=== PATIENT | female | born 1985 | race Caucasian/White ===

== ENCOUNTER 2020-02-12 17:43 | Inpatient (IN) | payer SELFPAY ==
[~2020-02-12] VITALS: Ht 170.2 cm; Wt 87.6 kg
[~2020-02-12 17:43] MED LIST: IBUP100T4
[2020-02-12] MEDS ORDERED: SODIUM CHLORIDE 0.9% 1,000 ML IV ONE ×2 (18:03→20:00)
[2020-02-12] MEDS ORDERED: ALBUTEROL SULF 2.5 MG/0.5ML(0.5%) NEB SOLN NEB ONE (18:15)
[2020-02-12] MEDS ORDERED: IPRATROPIUM BROM 0.5 MG/2.5ML INH SOL NEB ONE (18:15)
[2020-02-12 18:27] LABS: Basophils # (auto) 0.1 10 ^3/uL (0-0.2); Basophils % (auto) 1.2 % (0.0-2.0); Eosinophils # (auto) 0.5 10 ^3/uL (0-0.8); Eosinophils % (auto) 7.2 % (0.0-7.0); Hematocrit 44.1 % (36.0-46.0); Hemoglobin 14.8 g/dL (12.2-16.2); Lymphocytes % (auto) 26.8 % (10.0-50.0); Mean Corpuscular Hemoglobin 29.8 pg (28.0-32.0); Mean Corpuscular Hgb Conc. 33.5 g/dL (32.0-36.0); Monocytes # (auto) 0.5 10 ^3/uL (0-1.3); Monocytes % (auto) 6.6 % (0.0-12.0); Neutrophils # (auto) 4.4 10 ^3/uL (1.6-8.6); Neutrophils % (auto) 58.2 % (37.0-80.0); Nucleated Red Blood Cells % 0.2 %; Platelet Count (auto) 179 10^3/uL (140-450); Red Blood Cells 4.95 10^6/uL (4.0-5.20); Red Cell Distribution Width 13.7 % (11.8-14.3); White Blood Cell 7.5 10^3/uL (4.4-10.8)
[2020-02-12 18:41] LABS: Albumin 3.9 g/dL (3.4-5.0); Anion Gap 7 (5-15); Blood Urea Nitrogen 9 mg/dL (7-18); Calcium 8.5 mg/dL (8.5-10.1); Carbon Dioxide 23 mmol/L (21-32); Chloride 109 mmol/L (98-107); Glucose 90 mg/dL (74-106); Magnesium 2.6 mg/dL (1.6-2.6); Potassium 3.8 mmol/L (3.5-5.1); Sodium 139 mmol/L (136-145)
[2020-02-12 18:46] LABS: Alanine Aminotransferase 41 U/L (13-56); Alkaline Phosphatase 61 U/L (45-117); Aspartate Aminotransferase 26 U/L (15-37); BUN/Creatinine Ratio 8.7; Bilirubin, Total 0.4 mg/dL (0.2-1.0); GFR African American 78 mL/min; GFR Non-African American 64 mL/min; Total Protein 7.6 g/dL (6.4-8.2)
[2020-02-12] MEDS ORDERED: methylPREDNISolone SOD SUCC 125 MG/2 ML VL IV ONE ×2 (19:00→20:00)
[2020-02-12] MEDS ORDERED: levoFLOXacin 750MG 150 ML IV ONE (20:00)
[2020-02-12 20:33] LABS: Urine Bacteria MANY /hpf (None Seen); Urine Blood Negative /uL (Negative); Urine Budding Yeast FEW /hpf (None Seen); Urine Specific Gravity 1.005 (1.001-1.035); Urine WBC 5 /hpf (0 - 5)
[2020-02-12] MEDS ORDERED: SODIUM CHLORIDE 0.9% 1,000 ML IV SCH (21:52)
[2020-02-12] MEDS ORDERED: ACETAMINOPHEN 325 MG TAB PO PRN (22:00)
[2020-02-12] MEDS ORDERED: TEMAZEPAM 15 MG CAP PO PRN (22:00)
[2020-02-12] MEDS ORDERED: OSELTAMIVIR 75 MG CAP PO ONE (22:00)
[2020-02-12] MEDS ORDERED: ONDANSETRON HCL 4 MG/2 ML VIAL IV PRN (22:00)
[2020-02-12] MEDS ORDERED: ALBUTEROL SULFATE 90 MCG MDI IN ONE (22:19)
[2020-02-12] MEDS ORDERED: MORPHINE SULF INJ 2 MG/ML SYRINGE 1ML IV PRN (22:30)
[2020-02-12] MEDS ORDERED: NITROGLYCERIN 0.4 MG SL TAB SL PRN (22:30)
[2020-02-12 22:38] LABS: CRP High Sensitivity 0.04 mg/dL (< 0.3)
[2020-02-12 22:46] VITALS: BP 105/59
[2020-02-12] MEDS: ALBUTEROL SULF HFA 90MCG INH 200DOSE IN SCH (22:46)
[2020-02-12 23:39] LABS: Lactic Acid w/Reflex 2.5 mmol/L (0.4-2.0)
[2020-02-13] VITALS (7 sets, daily range): BP systolic 93–145; BP diastolic 58–82
[2020-02-13] MEDS: DOXYCYCLINE 100MG/250ML 250 ML IV SCH ×3 (00:19→22:39)
[2020-02-13] MEDS: FAMOTIDINE 20 MG TAB PO SCH ×3 (00:19→22:38)
[2020-02-13] MEDS ORDERED: ALBU0.084 NEB (00:52)
[2020-02-13 06:45] LABS: Basophils # (auto) 0 10 ^3/uL (0-0.2); Basophils % (auto) 0.2 % (0.0-2.0); Eosinophils # (auto) 0 10 ^3/uL (0-0.8); Eosinophils % (auto) 0.1 % (0.0-7.0); Hematocrit 41.2 % (36.0-46.0); Hemoglobin 13.6 g/dL (12.2-16.2); Lymphocytes # (auto) 0.4 10 ^3/uL (0.4-5.4); Lymphocytes % (auto) 6.9 % (10.0-50.0); Mean Corpuscular Hemoglobin 29.6 pg (28.0-32.0); Mean Corpuscular Hgb Conc. 33.1 g/dL (32.0-36.0); Mean Corpuscular Volume 89.4 fL (80.0-100.0); Monocytes # (auto) 0.1 10 ^3/uL (0-1.3); Monocytes % (auto) 1.4 % (0.0-12.0); Neutrophils # (auto) 4.8 10 ^3/uL (1.6-8.6); Neutrophils % (auto) 91.4 % (37.0-80.0); Nucleated Red Blood Cells % 0.1 %; Platelet Count (auto) 162 10^3/uL (140-450); Red Blood Cells 4.61 10^6/uL (4.0-5.20); Red Cell Distribution Width 13.7 % (11.8-14.3); White Blood Cell 5.2 10^3/uL (4.4-10.8)
[2020-02-13 07:06] LABS: Albumin 3.4 g/dL (3.4-5.0); Calcium 8.2 mg/dL (8.5-10.1); Potassium 4.2 mmol/L (3.5-5.1)
[2020-02-13 07:12] LABS: BUN/Creatinine Ratio 9.4; Bilirubin, Total 0.4 mg/dL (0.2-1.0)
[2020-02-13] MEDS: ALBUTEROL SULF HFA 90MCG INH 200DOSE IN SCH ×2 (07:21→13:13)
[2020-02-13] MEDS ORDERED: OSELTAMIVIR 75 MG CAP PO SCH (10:00)
[2020-02-13] MEDS ORDERED: ZINC SULFATE 220mg CAP or TAB PO SCH (10:00)
[2020-02-13] MEDS: CHOLECALCIFEROL (VITD3) 1,000IU=25mCg TAB PO SCH (10:22)
[2020-02-13] MEDS: ASCORBIC ACID 1,000 MG TAB PO SCH (10:22)
[2020-02-13] MEDS ORDERED: SODIUM CHLORIDE 0.9% 1,000 ML IV ONE (11:00)
[2020-02-13] MEDS ORDERED: ALBUTEROL SULF HFA 90MCG INH 200DOSE IN SCH (12:30)
[2020-02-13] MEDS ORDERED: PROMETHAZINE W/CODEINE 5 ML ORAL SYRUP PO PRN (12:30)
[2020-02-13] MEDS ORDERED: ALBUTEROL SULF HFA 90MCG INH 200DOSE IN ONE (12:45)
[2020-02-13] MEDS: SODIUM CHLORIDE 0.9% 1,000 ML IV SCH (16:00)
[2020-02-13] MEDS ORDERED: methylPREDNISolone SOD SUCC 125 MG/2 ML VL IV ONE (16:00)
[2020-02-13] MEDS: ALBUTEROL SULF 2.5 MG/0.5ML(0.5%) NEB SOLN NEB SCH ×2 (17:18→22:18)
[2020-02-13] MEDS: IPRATROPIUM BROM 0.5 MG/2.5ML INH SOL NEB SCH ×2 (17:18→22:18)
[2020-02-13] MEDS: ACETYLCYSTEINE 20%(200MG/ML) SOL 4ML NEB SCH (22:18)
[2020-02-13] MEDS: methylPREDNISolone SOD SUCC 125 MG/2 ML VL IV SCH (22:36)
[2020-02-13] MEDS: OSELTAMIVIR 75 MG CAP PO SCH (22:39)
[2020-02-14] MEDS: IPRATROPIUM BROM 0.5 MG/2.5ML INH SOL NEB SCH ×3 (02:04→09:31)
[2020-02-14] MEDS: ALBUTEROL SULF 2.5 MG/0.5ML(0.5%) NEB SOLN NEB SCH ×3 (02:04→09:31)
[2020-02-14 05:00] VITALS: BP 113/58
[2020-02-14] MEDS: SODIUM CHLORIDE 0.9% 1,000 ML IV SCH (05:20)
[2020-02-14] MEDS: ACETYLCYSTEINE 20%(200MG/ML) SOL 4ML NEB SCH (05:37)
[2020-02-14] MEDS: methylPREDNISolone SOD SUCC 125 MG/2 ML VL IV SCH ×2 (06:09→14:00)
[2020-02-14 08:48] VITALS: BP 128/84
[2020-02-14] MEDS: ASCORBIC ACID 1,000 MG TAB PO SCH (10:00)
[2020-02-14] MEDS: DOXYCYCLINE 100MG/250ML 250 ML IV SCH (10:19)
[2020-02-14] MEDS: CHOLECALCIFEROL (VITD3) 1,000IU=25mCg TAB PO SCH (10:20)
[2020-02-14] MEDS: OSELTAMIVIR 75 MG CAP PO SCH (10:20)
[2020-02-14] MEDS: FAMOTIDINE 20 MG TAB PO SCH (10:20)
[2020-02-14 13:00] VITALS: BP 115/80
== END 2020-02-14 14:23 | disposition home or self-care (01) | DRG 871 ==
LOC: EDBD 17:43 → ER 17:43 → TELE 17:44 → TELE-EAST 23:56 → TELE-CENTR 02-13 16:54
PROVIDERS: ADMIT Nurse Practitioner; ATTEND Internal Medicine
DX: A41.9 Sepsis, unspecified organism (principal); J96.20 Acute and chronic respiratory failure, unspecified whether with hypoxia or hypercapnia; J44.0 Chronic obstructive pulmonary disease with (acute) lower respiratory infection; J44.1 Chronic obstructive pulmonary disease with (acute) exacerbation; J45.901 Unspecified asthma with (acute) exacerbation; J20.9 Acute bronchitis, unspecified; K57.30 Diverticulosis of large intestine without perforation or abscess without bleeding; J10.1 Influenza due to other identified influenza virus with other respiratory manifestations; F17.210 Nicotine dependence, cigarettes, uncomplicated; Z03.818 Encounter for observation for suspected exposure to other biological agents ruled out
CPT/HCPCS: 36415; 36600; 71045; 80053; 81001; 82728; 82805; 83036; 83605; 83615; 83735; 83880; 84439; 84443; 84484; 85025; 85379; 86141; 87070; 87804; 87880; 93005; 94640; 94644; G0378; J1956; J2405; J3490

== ENCOUNTER 2020-03-25 17:34 | Inpatient (IN) | payer OTHER, SELFPAY ==
[~2020-03-25] VITALS: Ht 152.4 cm; Wt 82.7 kg
[~2020-03-25 17:34] MED LIST changes: +ALBU0.084 NEB
[2020-03-25] MEDS ORDERED: methylPREDNISolone SOD SUCC 125 MG/2 ML VL IV ONE (17:45)
[2020-03-25] MEDS ORDERED: IPRATROPIUM BROM 0.5 MG/2.5ML INH SOL NEB ONE (17:45)
[2020-03-25] MEDS ORDERED: ALBUTEROL SULF 2.5 MG/0.5ML(0.5%) NEB SOLN NEB ONE (17:45)
[2020-03-25] MEDS ORDERED: SODIUM CHLORIDE 0.9% 1,000 ML IV ONE (18:38)
[2020-03-25] MEDS ORDERED: IPRATROPIUM BROM 0.5 MG/2.5ML INH SOL HHN ONE (18:45)
[2020-03-25] MEDS ORDERED: ALBUTEROL SULF 2.5 MG/0.5ML(0.5%) NEB SOLN HHN ONE (18:45)
[2020-03-25 19:11] LABS: Hematocrit 43.5 % (36.0-46.0); Hemoglobin 14.6 g/dL (12.2-16.2); Mean Corpuscular Hemoglobin 29.9 pg (28.0-32.0); Mean Corpuscular Hgb Conc. 33.5 g/dL (32.0-36.0); Mean Corpuscular Volume 89.2 fL (80.0-100.0); Platelet Count (auto) 196 10^3/uL (140-450); Red Blood Cells 4.87 10^6/uL (4.0-5.20); Red Cell Distribution Width 14.3 % (11.8-14.3); White Blood Cell 7.7 10^3/uL (4.4-10.8)
[2020-03-25] MEDS ORDERED: NITROGLYCERIN 0.4 MG SL TAB SL PRN ×2 (19:15→19:30)
[2020-03-25] MEDS ORDERED: MORPHINE SULF INJ 2 MG/ML SYRINGE 1ML IV PRN ×3 (19:15→19:30)
[2020-03-25 19:23] LABS: Band Neutrophils % (manual) 0; Basophils % (manual) 0 (0.0-2.0); Blast Cells 0; Eosinophils % (manual) 0 (0-7); Metamyelocytes % 0; Myelocytes % 0; Promyelocytes % 0; Reactive Lymphocytes 0
[2020-03-25 19:27] LABS: Albumin 4.5 g/dL (3.4-5.0); BUN/Creatinine Ratio 7.1; Calcium 8.8 mg/dL (8.5-10.1); Potassium 3.8 mmol/L (3.5-5.1)
[2020-03-25 19:30] LABS: Bilirubin, Total 0.5 mg/dL (0.2-1.0)
[2020-03-25] MEDS ORDERED: ONDANSETRON HCL 4 MG/2 ML VIAL IV PRN (19:30)
[2020-03-25] MEDS ORDERED: DOCUSATE SOD 100 MG CAP PO PRN (19:30)
[2020-03-25] MEDS ORDERED: dilTIAZem 25 MG/5 ML VIAL IV PRN (19:30)
[2020-03-25] MEDS ORDERED: HYDROcodone-ACET 5/325MG TAB PO PRN (19:30)
[2020-03-25] MEDS ORDERED: LORazepam 0.5 MG TAB PO PRN (19:30)
[2020-03-25] MEDS ORDERED: ALUM & MAG HYDROX-SIMETH LIQ(MAALOX) 30 ML PO PRN (19:30)
[2020-03-25 21:17] LABS: Urine Bacteria FEW /hpf (None Seen); Urine Blood 1+ /uL (Negative); Urine Mucus FEW (None Seen); Urine Specific Gravity 1.019 (1.001-1.035); Urine WBC 2 /hpf (0 - 5)
[2020-03-25 21:19] LABS: Lymphocytes % (manual) 22 (10.0-50.0); Monocytes % (manual) 11 (0-12)
[2020-03-25 21:21] VITALS: BP 126/58
--- NOTE | 2020-03-25 21:30 | NUR ---
Opening Shift Note Patient brought to the floor. No report received from ER. Assumed care of patient, awake and alert. No S/S of distress/SOB or pain. Instructed on POC and to call for assist PRN, will continue to monitor for changes Q1hr and PRN.
[2020-03-25] MEDS: methylPREDNISolone SOD SUCC 40 MG/ML VL IV SCH (21:49)
[2020-03-25] MEDS: MONTELUKAST SODIUM 10 MG TAB PO SCH (21:50)
[2020-03-25] MEDS ORDERED: ALBU2TAB4 PO (21:58)
[2020-03-25] MEDS ORDERED: FLUT250M2 INH (21:58)
[2020-03-25] MEDS ORDERED: SERDISK IN (21:58)
[2020-03-25] MEDS ORDERED: FLU220IH INH (21:58)
[2020-03-25 22:00] VITALS: BP 129/57
[2020-03-25] MEDS: IPRATROPIUM BROM 0.5 MG/2.5ML INH SOL NEB SCH (22:00)
[2020-03-25] MEDS: ALBUTEROL SULF 2.5 MG/0.5ML(0.5%) NEB SOLN NEB SCH (22:00)
--- NOTE | 2020-03-25 22:40 | NUR ---
Respiratory note: PT REFUSED MED NEB TX AT THIS TIME. PT STATED SHES BREATHING IS OKAY. PT'S HR 102, RR 18, SPO2 97% ON 2L NC. PT IS SLEEPING COMFORTABLY. NO S/S OF ANY DISTRESS NOTED. ADVISED PT TO CALL IF TX IS NEEDED.
--- NOTE | 2020-03-26 02:00 | NUR ---
Respiratory note: PT REFUSED SCHEDULED MED NEB TX AT THIS TIME. PT STATED SHE FELT GOOD AND WANTED TO CONTINUE SLEEPING. PT STATED SHE WOULD TAKE HER MORNING TX. HR 123, RR 18, SPO2 95% ON 2L NC. ADVISED PT TO CALL IF TX IS NEEDED. RN AWARE OF PT REFUSAL.
[2020-03-26] MEDS: ALBUTEROL SULF 2.5 MG/0.5ML(0.5%) NEB SOLN NEB SCH ×6 (02:30→21:45)
[2020-03-26] MEDS: IPRATROPIUM BROM 0.5 MG/2.5ML INH SOL NEB SCH ×6 (02:30→21:45)
[2020-03-26 05:00] VITALS: BP 103/49
[2020-03-26] MEDS: methylPREDNISolone SOD SUCC 40 MG/ML VL IV SCH ×3 (05:53→22:06)
[2020-03-26] MEDS ORDERED: FUROSEMIDE 20 MG/2 ML VIAL IV SCH (06:00)
[2020-03-26 06:22] LABS: Basophils # (auto) 0 10 ^3/uL (0-0.2); Basophils % (auto) 0.1 % (0.0-2.0); Eosinophils # (auto) 0 10 ^3/uL (0-0.8); Eosinophils % (auto) 0.1 % (0.0-7.0); Hematocrit 40.3 % (36.0-46.0); Hemoglobin 13.5 g/dL (12.2-16.2); Lymphocytes # (auto) 0.6 10 ^3/uL (0.4-5.4); Mean Corpuscular Hemoglobin 30.1 pg (28.0-32.0); Mean Corpuscular Hgb Conc. 33.5 g/dL (32.0-36.0); Mean Corpuscular Volume 89.9 fL (80.0-100.0); Monocytes # (auto) 0.1 10 ^3/uL (0-1.3); Monocytes % (auto) 2.1 % (0.0-12.0); Neutrophils # (auto) 6.4 10 ^3/uL (1.6-8.6); Neutrophils % (auto) 89.7 % (37.0-80.0); Platelet Count (auto) 192 10^3/uL (140-450); Red Blood Cells 4.48 10^6/uL (4.0-5.20); Red Cell Distribution Width 14.4 % (11.8-14.3); White Blood Cell 7.1 10^3/uL (4.4-10.8)
[2020-03-26 06:36] LABS: INR 1.05 (0.9-1.15); Partial Thromboplastin Time 25.3 sec (23.64-32.05)
[2020-03-26 06:42] LABS: Albumin 3.6 g/dL (3.4-5.0); Calcium 8.3 mg/dL (8.5-10.1); Magnesium 2.3 mg/dL (1.6-2.6); Potassium 4.6 mmol/L (3.5-5.1)
[2020-03-26 06:46] LABS: BUN/Creatinine Ratio 11.3; Bilirubin, Total 0.4 mg/dL (0.2-1.0); Total Protein 6.9 g/dL (6.4-8.2)
[2020-03-26 06:55] LABS: Phosphorus 3.1 mg/dL (2.5-4.90)
[2020-03-26 09:00] VITALS: BP 115/62
[2020-03-26] MEDS: ENOXAPARIN SOD 40 MG/0.4 ML SYRINGE SC SCH (09:26)
[2020-03-26] MEDS: AZITHROMYCIN 500MG/ 250ML 250 ML IV SCH (09:26)
[2020-03-26] MEDS ORDERED: FLUT500M2 INH (10:50)
[2020-03-26] MEDS ORDERED: ALBUAER3 IN (10:51)
[2020-03-26] MEDS ORDERED: ACET-1304 PO (10:54)
[2020-03-26] MEDS ORDERED: DIPH25CA66 PO (10:54)
[2020-03-26 13:00] VITALS: BP 106/64
[2020-03-26] MEDS ORDERED: LORATADINE 10 MG TAB PO ONE (15:30)
[2020-03-26 17:00] VITALS: BP 130/67
--- NOTE | 2020-03-26 18:50 | NUR ---
Respiratory note: PEAK FLOW ASSESSMENT, TARGET FOR PT AGE/HEIGHT 89, ACCORDING TO NURSE ASSESSOR MANUAL. PT INSTRUCTED ON HOW TO PERFORM TEST, PT FOLLOWED INSTRUCTIONS CORRECTLY AND GOOD EFFORT NOTED. PRE-300/ POST-290
[2020-03-26 18:56] LABS: Alcohol, Urine < 3.0 mg/dL (0-10); Amphetamine Screen, Urine NEGATIVE (NEGATIVE); Barbiturate Scree,Urine NEGATIVE (NEGATIVE); Benzodiazephine Screen, Urine NEGATIVE (NEGATIVE); Cannabinoid Screen, Urine NEGATIVE (NEGATIVE); Cocaine Screen, Urine NEGATIVE (NEGATIVE); Opiate Scree,Urine NEGATIVE (NEGATIVE); Phencyclidine Screen, Urine NEGATIVE (NEGATIVE)
--- NOTE | 2020-03-26 19:25 | NUR ---
DR. PILLAI AT BEDSIDE TO ASSESS PATIENT AND DISCUSS PLAN OF CARE
--- NOTE | 2020-03-26 19:30 | NUR ---
Opening Shift Note Assumed care of patient, awake and alert. No S/S of distress/SOB or pain. The patient has non productive coughing. Bed is locked in lowest position. Instructed on POC and to call for assist PRN, will continue to monitor for changes Q1hr and PRN.
[2020-03-26] MEDS: BUDESONIDE (INHALATION) 0.5 MG/2 ML NEB NEB SCH (21:45)
[2020-03-26 22:00] VITALS: BP 110/69
[2020-03-26] MEDS: MONTELUKAST SODIUM 10 MG TAB PO SCH (22:06)
[2020-03-27] MEDS: ALBUTEROL SULF 2.5 MG/0.5ML(0.5%) NEB SOLN NEB SCH ×4 (01:50→13:51)
[2020-03-27] MEDS: IPRATROPIUM BROM 0.5 MG/2.5ML INH SOL NEB SCH ×4 (01:51→13:51)
[2020-03-27 05:00] VITALS: BP 114/64
[2020-03-27] MEDS: methylPREDNISolone SOD SUCC 40 MG/ML VL IV SCH (06:00)
[2020-03-27] MEDS: BUDESONIDE (INHALATION) 0.5 MG/2 ML NEB NEB SCH (06:52)
--- NOTE | 2020-03-27 07:10 | NUR ---
peak flows 230/360lpm. Addendum: 03/27/20 at 0710 by Debbie Ybarra RT Amended: Links added.
[2020-03-27 09:00] VITALS: BP 123/67
[2020-03-27] MEDS: AZITHROMYCIN 500MG/ 250ML 250 ML IV SCH (09:42)
[2020-03-27] MEDS: ENOXAPARIN SOD 40 MG/0.4 ML SYRINGE SC SCH (09:43)
[2020-03-27] MEDS ORDERED: PANTOPRAZOLE 40 MG TAB PO SCH (10:00)
[2020-03-27 12:36] VITALS: BP 112/65
== END 2020-03-27 14:00 | disposition home or self-care (01) | DRG 189 ==
LOC: ER 17:34 → TELE 17:35 → TELE-WESTW 21:11
PROVIDERS: ADMIT Hospitalist; ATTEND Internal Medicine
DX: J96.21 Acute and chronic respiratory failure with hypoxia (principal); J45.901 Unspecified asthma with (acute) exacerbation; J44.1 Chronic obstructive pulmonary disease with (acute) exacerbation; N39.0 Urinary tract infection, site not specified; R65.10 Systemic inflammatory response syndrome (SIRS) of non-infectious origin without acute organ dysfunction; E66.9 Obesity, unspecified; F17.210 Nicotine dependence, cigarettes, uncomplicated; Z98.51 Tubal ligation status; Z79.899 Other long term (current) drug therapy; Z68.34 Body mass index [BMI] 34.0-34.9, adult
CPT/HCPCS: 36415; 36600; 71046; 80053; 80307; 81001; 82805; 83605; 83735; 83880; 84100; 85007; 85025; 85027; 85610; 85730; 87040; 87086; 93005; 94010; 94060; 94640; 94644; G0378

== ENCOUNTER → 2020-06-11 | Outpatient (CLI) | payer OTHER ==
[~2020-06-11] MED LIST changes: +ACET-1304 PO; +ALBUAER3 IN; +DIPH25CA66 PO; +FLU220IH INH; +FLUT500M2 INH; -IBUP100T4; +SERDISK IN
[2020-06-11 08:06] LABS: Basophils # (auto) 0.1 10 ^3/uL (0-0.2); Eosinophils # (auto) 0.5 10 ^3/uL (0-0.8); Eosinophils % (auto) 8.9 % (0.0-7.0); Hematocrit 40.6 % (36.0-46.0); Hemoglobin 13.4 g/dL (12.2-16.2); Lymphocytes # (auto) 1.9 10 ^3/uL (0.4-5.4); Lymphocytes % (auto) 36.6 % (10.0-50.0); Mean Corpuscular Hemoglobin 29.6 pg (28.0-32.0); Mean Corpuscular Hgb Conc. 33.1 g/dL (32.0-36.0); Mean Corpuscular Volume 89.5 fL (80.0-100.0); Monocytes # (auto) 0.4 10 ^3/uL (0-1.3); Monocytes % (auto) 7.6 % (0.0-12.0); Neutrophils # (auto) 2.3 10 ^3/uL (1.6-8.6); Neutrophils % (auto) 44.9 % (37.0-80.0); Nucleated Red Blood Cells % 0.1 %; Platelet Count (auto) 190 10^3/uL (140-450); Red Blood Cells 4.54 10^6/uL (4.0-5.20); White Blood Cell 5.2 10^3/uL (4.4-10.8)
[2020-06-11 08:41] LABS: Albumin 3.5 g/dL (3.4-5.0); Calcium 8.3 mg/dL (8.5-10.1); Potassium 3.8 mmol/L (3.5-5.1)
[2020-06-11 08:46] LABS: BUN/Creatinine Ratio 12.5; Bilirubin, Total 0.4 mg/dL (0.2-1.0); Total Protein 6.5 g/dL (6.4-8.2)
== END | disposition home or self-care (01) ==
LOC: LAB 07:40
PROVIDERS: ATTEND Family Medicine
DX: E04.9 Nontoxic goiter, unspecified (principal); J45.40 Moderate persistent asthma, uncomplicated
CPT/HCPCS: 36415; 80053; 80061; 84443; 85025

== ENCOUNTER → 2020-11-17 | Outpatient (CLI) | payer OTHER ==
[2020-11-17 09:07] LABS: Albumin 3.6 g/dL (3.4-5.0); Calcium 8.6 mg/dL (8.5-10.1); Potassium 3.9 mmol/L (3.5-5.1)
[2020-11-17 09:10] LABS: BUN/Creatinine Ratio 12.5; Bilirubin, Total 0.4 mg/dL (0.2-1.0)
== END | disposition home or self-care (01) ==
LOC: LAB 08:27
PROVIDERS: ATTEND Family Medicine
DX: Z01.818 Encounter for other preprocedural examination (principal); E01.0 Iodine-deficiency related diffuse (endemic) goiter; R22.1 Localized swelling, mass and lump, neck; R49.9 Unspecified voice and resonance disorder
CPT/HCPCS: 36415; 80053

== ENCOUNTER 2021-09-06 12:51 | Emergency (ER) | payer OTHER ==
[~2021-09-06] VITALS: Ht 167.6 cm; Wt 81.6 kg
[2021-09-06 12:51] VITALS: BP 112/71
[2021-09-06] MEDS ORDERED: IPRATROPIUM BROM 0.5 MG/2.5ML INH SOL NEB ONE (13:30)
[2021-09-06] MEDS ORDERED: ALBUTEROL SULF 2.5 MG/0.5ML(0.5%) NEB SOLN NEB ONE (13:30)
[2021-09-06 14:08] LABS: Basophils # (auto) 0 10 ^3/uL (0-0.2); Basophils % (auto) 0.4 % (0.0-2.0); Eosinophils # (auto) 0.5 10 ^3/uL (0-0.8); Eosinophils % (auto) 8.4 % (0.0-7.0); Hematocrit 43.7 % (36.0-46.0); Hemoglobin 14.7 g/dL (12.2-16.2); Lymphocytes # (auto) 1.2 10 ^3/uL (0.4-5.4); Lymphocytes % (auto) 20.2 % (10.0-50.0); Mean Corpuscular Hemoglobin 29.6 pg (28.0-32.0); Mean Corpuscular Hgb Conc. 33.6 g/dL (32.0-36.0); Mean Corpuscular Volume 88.1 fL (80.0-100.0); Monocytes # (auto) 0.3 10 ^3/uL (0-1.3); Monocytes % (auto) 4.1 % (0.0-12.0); Neutrophils # (auto) 4.1 10 ^3/uL (1.6-8.6); Neutrophils % (auto) 66.9 % (37.0-80.0); Nucleated Red Blood Cells % 0.1 %; Red Blood Cells 4.96 10^6/uL (4.0-5.20); Red Cell Distribution Width 13.7 % (11.8-14.3); White Blood Cell 6.2 10^3/uL (4.4-10.8)
[2021-09-06 16:28] LABS: Albumin 3.6 g/dL (3.4-5.0); Calcium 8.6 mg/dL (8.5-10.1); Potassium 3.7 mmol/L (3.5-5.1)
[2021-09-06 16:33] LABS: BUN/Creatinine Ratio 13.3; Bilirubin, Total 0.6 mg/dL (0.2-1.0); Total Protein 7.2 g/dL (6.4-8.2)
== END 2021-09-06 16:38 | disposition home or self-care (01) ==
LOC: EDBD 12:51 → ER 12:51
DX: J45.901 Unspecified asthma with (acute) exacerbation (principal); F17.210 Nicotine dependence, cigarettes, uncomplicated; Z98.51 Tubal ligation status
CPT/HCPCS: 36415; 71045; 80053; 84484; 85025; 93005; 94640; 99285; J7644

== ENCOUNTER 2021-10-26 09:24 | Emergency (ER) | payer OTHER ==
[~2021-10-26] VITALS: Ht 170.2 cm; Wt 77.1 kg
[2021-10-26 12:13] VITALS: BP 136/81
[2021-10-26] MEDS ORDERED: ALBUTEROL SULF 2.5 MG/0.5ML(0.5%) NEB SOLN NEB ONE (12:45)
[2021-10-26] MEDS ORDERED: IPRATROPIUM BROM 0.5 MG/2.5ML INH SOL NEB ONE (12:45)
[2021-10-26] MEDS ORDERED: KETOROLAC TROMETH 30 MG/ML 1ML VIAL IV ONE (12:45)
[2021-10-26] MEDS ORDERED: methylPREDNISolone SOD SUCC 125 MG/2 ML VL IV ONE (12:45)
[2021-10-26] MEDS ORDERED: methylPREDNISolone SOD SUCC 125 MG/2 ML VL ONE (12:57)
[2021-10-26] MEDS ORDERED: PRED20TA2 PO (13:38)
== END 2021-10-26 13:53 | disposition home or self-care (01) ==
LOC: EDBD 09:24 → ER 09:24
DX: S29.011A Strain of muscle and tendon of front wall of thorax, initial encounter (principal); J45.901 Unspecified asthma with (acute) exacerbation; J44.9 Chronic obstructive pulmonary disease, unspecified; F17.210 Nicotine dependence, cigarettes, uncomplicated; Z79.899 Other long term (current) drug therapy; Z88.8 Allergy status to other drugs, medicaments and biological substances; Z91.048 Other nonmedicinal substance allergy status; V89.2XXA Person injured in unspecified motor-vehicle accident, traffic, initial encounter; Y93.89 Activity, other specified; Y92.410 Unspecified street and highway as the place of occurrence of the external cause; Y99.8 Other external cause status
CPT/HCPCS: 71046; 93005; 96374; 99283; J1885; J2930; J7644

== ENCOUNTER → 2021-12-24 | Outpatient (CLI) | payer OTHER ==
[~2021-12-24] MED LIST changes: +PRED20TA2 PO
[2021-12-24 11:27] LABS: Basophils # (auto) 0.1 10 ^3/uL (0-0.2); Basophils % (auto) 1.2 % (0.0-2.0); Eosinophils # (auto) 0.6 10 ^3/uL (0-0.8); Eosinophils % (auto) 10.3 % (0.0-7.0); Hematocrit 43.8 % (36.0-46.0); Lymphocytes # (auto) 1.3 10 ^3/uL (0.4-5.4); Mean Corpuscular Hgb Conc. 34.3 g/dL (32.0-36.0); Mean Corpuscular Volume 90.4 fL (80.0-100.0); Monocytes # (auto) 0.3 10 ^3/uL (0-1.3); Monocytes % (auto) 5.2 % (0.0-12.0); Neutrophils # (auto) 3.4 10 ^3/uL (1.6-8.6); Neutrophils % (auto) 60.3 % (37.0-80.0); Red Blood Cells 4.85 10^6/uL (4.0-5.20); White Blood Cell 5.6 10^3/uL (4.4-10.8)
[2021-12-24 12:21] LABS: Albumin 3.8 g/dL (3.4-5.0); Calcium 8.8 mg/dL (8.5-10.1); Potassium 4.2 mmol/L (3.5-5.1)
[2021-12-24 12:27] LABS: BUN/Creatinine Ratio 19.8; Bilirubin, Total 0.5 mg/dL (0.2-1.0); Total Protein 7.1 g/dL (6.4-8.2)
== END | disposition home or self-care (01) ==
LOC: LAB 10:14
PROVIDERS: ATTEND Student in an Organized Health Care Education/Training Program
DX: Z00.00 Encounter for general adult medical examination without abnormal findings (principal)
CPT/HCPCS: 36415; 80053; 80061; 84443; 85025

== ENCOUNTER 2022-04-13 10:17 | Emergency (ER) | payer OTHER ==
[~2022-04-13] VITALS: Ht 170.2 cm; Wt 82.6 kg
[2022-04-13 11:04] VITALS: BP 126/82
[2022-04-13] MEDS ORDERED: SUMAtriptan SUCCINATE 6 MG/0.5 ML VL SC ONE (12:00)
[2022-04-13 12:44] LABS: Basophils # (auto) 0.1 10 ^3/uL (0-0.2); Basophils % (auto) 1.2 % (0.0-2.0); Eosinophils # (auto) 0.8 10 ^3/uL (0-0.8); Eosinophils % (auto) 10.8 % (0.0-7.0); Hematocrit 46.3 % (36.0-46.0); Hemoglobin 15.1 g/dL (12.2-16.2); Lymphocytes # (auto) 2.3 10 ^3/uL (0.4-5.4); Lymphocytes % (auto) 31.7 % (10.0-50.0); Mean Corpuscular Hgb Conc. 32.5 g/dL (32.0-36.0); Mean Corpuscular Volume 89.3 fL (80.0-100.0); Monocytes # (auto) 0.4 10 ^3/uL (0-1.3); Monocytes % (auto) 5.2 % (0.0-12.0); Neutrophils # (auto) 3.6 10 ^3/uL (1.6-8.6); Neutrophils % (auto) 51.1 % (37.0-80.0); Nucleated Red Blood Cells % 0.1 %; Red Blood Cells 5.19 10^6/uL (4.0-5.20); Red Cell Distribution Width 13.3 % (11.8-14.3); White Blood Cell 7.1 10^3/uL (4.4-10.8)
[2022-04-13 12:45] LABS: BUN/Creatinine Ratio 13.8; Calcium 8.9 mg/dL (8.5-10.1); Potassium 4.5 mmol/L (3.5-5.1)
[2022-04-13] MEDS ORDERED: METH4PAK PO (13:35)
[2022-04-13] MEDS ORDERED: AMOX-277 PO (13:35)
[2022-04-13] MEDS ORDERED: SUMA50TA2 PO (13:39)
== END 2022-04-13 13:54 | disposition home or self-care (01) ==
LOC: ER 10:17
DX: G43.909 Migraine, unspecified, not intractable, without status migrainosus (principal); J01.40 Acute pansinusitis, unspecified; F17.210 Nicotine dependence, cigarettes, uncomplicated; J44.9 Chronic obstructive pulmonary disease, unspecified; Z98.51 Tubal ligation status; Z98.890 Other specified postprocedural states
CPT/HCPCS: 36415; 70450; 80048; 84439; 84443; 85025; 96372; 99284; J3030

== ENCOUNTER 2022-05-25 16:24 | Emergency (ER) | payer OTHER ==
[~2022-05-25] VITALS: Ht 170.2 cm; Wt 83.6 kg
[~2022-05-25 16:24] MED LIST changes: +AMOX-277 PO; +METH4PAK PO; +SUMA50TA2 PO
[2022-05-25 16:54] VITALS: BP 123/80
[2022-05-25 19:12] LABS: Urine Bacteria MOD /hpf (None Seen); Urine Blood Negative /uL (Negative); Urine Specific Gravity 1.009 (1.001-1.035); Urine WBC <1 /hpf (0 - 5)
[2022-05-25 19:42] LABS: Basophils # (auto) 0.1 10 ^3/uL (0-0.2); Basophils % (auto) 1.1 % (0.0-2.0); Eosinophils # (auto) 0.1 10 ^3/uL (0-0.8); Eosinophils % (auto) 1.7 % (0.0-7.0); Hematocrit 41.9 % (36.0-46.0); Hemoglobin 13.8 g/dL (12.2-16.2); Lymphocytes # (auto) 2.1 10 ^3/uL (0.4-5.4); Lymphocytes % (auto) 26.3 % (10.0-50.0); Mean Corpuscular Volume 87.8 fL (80.0-100.0); Monocytes # (auto) 0.4 10 ^3/uL (0-1.3); Monocytes % (auto) 4.6 % (0.0-12.0); Neutrophils # (auto) 5.4 10 ^3/uL (1.6-8.6); Neutrophils % (auto) 66.3 % (37.0-80.0); Nucleated Red Blood Cells % 0.1 %; Red Blood Cells 4.77 10^6/uL (4.0-5.20); Red Cell Distribution Width 14.1 % (11.8-14.3); White Blood Cell 8.1 10^3/uL (4.4-10.8)
[2022-05-25 19:59] LABS: Calcium 8.7 mg/dL (8.5-10.1); Potassium 3.7 mmol/L (3.5-5.1)
[2022-05-25 20:05] LABS: Albumin 3.9 g/dL (3.4-5.0); BUN/Creatinine Ratio 14.6; Bilirubin, Total 0.5 mg/dL (0.2-1.0); Total Protein 7.1 g/dL (6.4-8.2)
== END 2022-05-26 07:07 | disposition left against medical advice (07) ==
LOC: ER 16:24
DX: R42 Dizziness and giddiness (principal); Z53.21 Procedure and treatment not carried out due to patient leaving prior to being seen by health care provider
CPT/HCPCS: 36415; 80053; 81001; 81025; 85025; 93005

== ENCOUNTER 2022-12-21 06:07 | Emergency (ER) | payer OTHER ==
[~2022-12-21] VITALS: Ht 170.2 cm; Wt 84.0 kg
[2022-12-21 06:41] LABS: Basophils # (auto) 0.1 10 ^3/uL (0-0.2); Basophils % (auto) 1.9 % (0.0-2.0); Eosinophils # (auto) 0.5 10 ^3/uL (0-0.8); Eosinophils % (auto) 11.9 % (0.0-7.0); Hemoglobin 12.6 g/dL (12.2-16.2); Lymphocytes # (auto) 1.5 10 ^3/uL (0.4-5.4); Lymphocytes % (auto) 32.9 % (10.0-50.0); Mean Corpuscular Hemoglobin 27.5 pg (28.0-32.0); Mean Corpuscular Hgb Conc. 34.1 g/dL (32.0-36.0); Mean Corpuscular Volume 80.7 fL (80.0-100.0); Monocytes # (auto) 0.6 10 ^3/uL (0-1.3); Monocytes % (auto) 13.5 % (0.0-12.0); Neutrophils # (auto) 1.8 10 ^3/uL (1.6-8.6); Neutrophils % (auto) 39.8 % (37.0-80.0); Nucleated Red Blood Cells % 0.2 %; Red Blood Cells 4.58 10^6/uL (4.0-5.20); White Blood Cell 4.5 10^3/uL (4.4-10.8)
[2022-12-21] MEDS ORDERED: HYDROmorphone HCL 2 MG/ML VL/or syr IM ONE (06:45)
[2022-12-21] MEDS ORDERED: ONDANSETRON ODT 4 MG TAB PO ONE (06:45)
[2022-12-21 06:59] LABS: Albumin 3.6 g/dL (3.4-5.0); Calcium 8.8 mg/dL (8.5-10.1); Potassium 3.9 mmol/L (3.5-5.1)
[2022-12-21 07:09] LABS: BUN/Creatinine Ratio 12.6; Bilirubin, Total 0.3 mg/dL (0.2-1.0); Total Protein 7.1 g/dL (6.4-8.2)
[2022-12-21 07:28] LABS: Urine WBC None Seen /hpf (0 - 5)
[2022-12-21 07:32] VITALS: BP 122/71
[2022-12-21 07:42] LABS: Urine Bacteria NONE SEEN /hpf (None Seen); Urine Blood 3+ /uL (Negative)
[2022-12-21] MEDS ORDERED: HYDR-4798 PO (09:26)
== END 2022-12-21 09:34 | disposition home or self-care (01) ==
LOC: ER 06:07
DX: D25.9 Leiomyoma of uterus, unspecified (principal); N83.202 Unspecified ovarian cyst, left side; R10.2 Pelvic and perineal pain; F17.210 Nicotine dependence, cigarettes, uncomplicated; Z88.6 Allergy status to analgesic agent; Z44.9 Encounter for fitting and adjustment of unspecified external prosthetic device; Z98.51 Tubal ligation status
CPT/HCPCS: 36415; 74176; 76856; 80053; 81001; 83690; 84702; 85025; 96372; 99285; J1170; Q0162